=== PATIENT | male | born 1965 | race Caucasian/White ===

== ENCOUNTER 2024-07-31 13:34 | Emergency (ER) | payer OTHER, SELFPAY ==
--- NOTE | ~2024-07-31 | CT_ITS ---
CLINICAL HISTORY: hit head. syncope CT cervical spine without contrast Comparison: None Findings: Normal vertebral body alignment. Multiple level degenerative disc, facet, and uncovertebral joint change.. No acute fractures or dislocations. No acute findings on limited view of the intracranial contents. Soft tissues of the neck are normal. No consolidation or effusion at the lung apices. IMPRESSION: No acute findings. This document has been electronically signed by: Cain Ruby MD on 07/31/2024 19:34:27
--- NOTE | ~2024-07-31 | XR_ITS ---
CLINICAL HISTORY: b l lower back pain s p lifting heavy object 3 views lumbar spine Comparison: None Findings: Normal vertebral body alignment. No acute fractures or dislocation. There is multiple level degenerative disc change. IMPRESSION: No acute findings. This document has been electronically signed by: Cain Ruby MD on 07/31/2024 18:52:13
--- NOTE | ~2024-07-31 | CT_ITS ---
CLINICAL HISTORY: hit head. syncope CT head without contrast Comparison: None Findings: No intra-axial mass, midline shift, hydrocephalus, or acute hemorrhage. Right cerebellar encephalomalacia. No significant atrophy-like change or white matter disease. The visualized paranasal sinuses and mastoid air cells are normal. The orbits are unremarkable. There is no acute fracture. IMPRESSION: 1. No acute intracranial findings This document has been electronically signed by: Cain Ruby MD on 07/31/2024 19:35:31
--- NOTE | 2024-07-31 13:43 | ECG_ITS ---
Test Reason : FALL Blood Pressure : / mmHG Vent. Rate : 069 BPM Atrial Rate : 069 BPM P-R Int : 152 ms QRS Dur : 082 ms QT Int : 378 ms P-R-T Axes : 000 -22 021 degrees QTc Int : 405 ms Poor data quality Sinus rhythm Inferior infarct , age undetermined Anteroseptal infarct , age undetermined Abnormal ECG No previous ECGs available Referred By: Generic ED Physician Electronically Signed By:DANIEL RODAS MD
[2024-07-31 13:44] VITALS: BP 127/85; PULSE 55; O2SAT 95
[2024-07-31 13:48] VITALS: BP 140/81; PULSE 59; RESP 16; TEMP 36.6; O2SAT 97; BMI 33.2
[2024-07-31 14:09] LABS: MANUAL DIFF FLAG NO
[2024-07-31 14:13] LABS: Basophils Percent Auto 0.5 % (0-2); Eosinophils Percent Auto 0.3 % (0-4); Hematocrit 42.5 % (42.0-52.0); Hemoglobin 14.4 g/dl (14.0-18.0); Imm Gran Abs Auto 0.03 X10*3/uL (0.00-0.03); Imm Gran Pct Auto 0.8 % (0.0-0.4); Lymphocytes Absolute Auto 0.5 X10*3/uL (1.2-4.9); Lymphocytes Percent Auto 12.5 % (20-40); Mean Corpuscular HGB Conc 33.9 g/dl (31.0-36.0); Mean Corpuscular Hemoglobin 31.4 pg (27.0-33.0); Mean Corpuscular Volume 92.6 fL (80.0-98.0); Mean Platelet Volume 9.9 fL (9.4-12.4); Monocytes Absolute Auto 0.6 X10*3/uL (0.1-1.2); Monocytes Percent Auto 14.3 % (2-11); Neutrophils Absolute Auto 2.8 x10*3/uL (2.0-8.3); Neutrophils Percent Auto 71.6 % (45-73); Platelet Count 145 X10*3/uL (160-400); Red Blood Count 4.59 X10*6/uL (4.60-5.80); White Blood Count 3.8 X10*3/uL (4.8-10.8)
[2024-07-31 14:17] LABS: INTERNATIONAL NORM RATIO 1.2 (0.9-1.1); Prothrombin Time 14.3 SEC (10.9-12.4)
[2024-07-31 14:24] LABS: Alanine Aminotransferase 15 U/L (0-40); Albumin Level 3.7 g/dL (3.5-5.0); Alkaline Phosphatase 74 U/L (39-117); Anion Gap 14 (12-20); Aspartate Amino Transferase 26 U/L (5-37); Bilirubin Total 1.5 mg/dL (0.0-1.0); Blood Urea Nitrogen 15 mg/dL (9-16); Calcium 8.2 mg/dL (8.4-10.2); Carbon Dioxide 22 mmol/L (22-29); Chloride 103 mmol/L (96-108); Creatinine Clr Calc Pharmacy 66.5; Estimated Glomerular Filt Rate 52; Glucose Random 98 mg/dL (60-115); Magnesium 1.8 mg/dL (1.6-2.6); Potassium 3.6 mmol/L (3.3-5.1); Sodium 135 mmol/L (135-145); Total Protein 7.3 g/dL (6.5-8.0)
[2024-07-31 14:30] LABS: Troponin-I High Sensitivity 13.6 ng/L (<3.5-35.0)
[2024-07-31 16:07] VITALS: BP 150/83; PULSE 65; RESP 16; TEMP 37.4; O2SAT 98
--- NOTE | 2024-07-31 16:25 | PC.NURSE ---
Patient unhappy no provider has seen him yet, wants to go home. Is uncomfortable in his C-collar. Informed patient that provider should be over to speak with him shortly, nursing is unable to take off C-collar. material yard clerkCHUCK junior aware of patient's dissatisfaction, able to get triage provider to order CT scan of head.
[2024-07-31 17:30] VITALS: BP 142/75; PULSE 63; RESP 16; TEMP 36.8; O2SAT 97
--- NOTE | 2024-07-31 17:41 | ED_ITS ---
HPI - Fall General Chief Complaint: Fall Stated Complaint: SYNCOPE WITH HEADSTRIKE +LOC X 30 SEC Time Seen by Provider: 07/31/24 17:17 Source: patient, family () and EMS Mode of arrival: EMS Limitations: no limitations History of Present Illness ED Provider: MARIA ESTHER BOSTON PA-C HPI Narrative: 59-year-old male with pmhx significant for CVA (not on anticoagulation) presents to the ED today via EMS from work for evaluation of syncopal episode prior to arrival in ED. Patient works at an [employer] shop. He reports bending down to roll picker a heavy battery and blew my back out . Reports immediate onset of pain to his entire low back. He was able to ambulate to the front of the store where his desk was. He recalls sitting down at his desk when he suddenly felt sweaty and weak. The next thing he recalls is waking up on the floor. His co-workers report patient lost consciousness for approximately 30 seconds with head strike on the ground. No noted convulsing, confusion, or bowel/bladder incontinence. Denies hx seizures. He is not on anti-coagulation. EMS was called and patient was transported to the ED in a cervical collar. His only complaint at present is his lower back pain. Pain runs diffusely across his low back. Does not radiate. Reports his back feels stiff . Admits to chronic low back pain since he was a child. No history of spinal surgery. No history of IV drug use. Denies saddle anesthesia, bowel or bladder incontinence or retention, dysuria, hematuria, numbness/tingling/weakness of the lower extremities. He denies headache, dizziness, vision changes, neck pain, chest pain, palpitations, SOB, calf pain. No recent travel or long car rides. Related Data Previous Rx's ?Medication ?Instructions ?Recorded cyclobenzaprine 10 mg tablet 10 mg PO BID PRN muscle spasm #7 07/31/24 tabs lidocaine 5 % topical patch 1 patch topical DAILY #15 ea 07/31/24 (Lidoderm) Allergies Allergy/AdvReac Type Severity Reaction Status Date / Time No Known Allergies Allergy Verified 07/31/24 13:59 Review of Systems 2 Review of Systems: Constitutional: No fever, chills, fatigue, night sweats, weight changes ENT/Mouth: No ear pain, hearing loss, nasal congestion, sinus pain, rhinorrhea, sore throat Eyes: No eye pain, swelling, redness, vision changes, discharge Cardio: No chest pain, palpitations, COLLINS, orthopnea, peripheral edema Pulm: No SOB, cough, sputum, wheezing, dyspnea, hemoptysis GI: No nausea, vomiting, hematemesis, abdominal pain, diarrhea, constipation, hematochezia, melena : No irregular bleeding, dysuria, frequency, urgency, hesitancy, hematuria, flank pain, urinary flow changes, urinary incontinence or retention MSK: No neck pain, joint pain, myalgias, +back pain Skin: No lesions, rashes Neuro: No weakness, numbness, paresthesias, LOC, dizziness, headache Psych: No anxiety/panic, depression, SI/HI, AH/VH All other systems reviewed and are negative. [facility] Past Medical History Attestation statement: The following information was validated with the patient. Source: old records reviewed and nursing notes reviewed Physical Exam 2 Vital Signs: Vital Signs: Last Vital Signs Temp 97.2 F 07/31/24 20:20 Pulse 57 07/31/24 20:20 Resp 16 07/31/24 20:20 BP 157/97 H 07/31/24 20:20 Pulse Ox 95 07/31/24 20:20 O2 Del Method Room Air 07/31/24 20:20 BMI result Body Mass Index 33.2 hypertensive, vitals are otherwise wnl General: Well appearing, in no acute distress. Skin: Warm, dry, intact. No rashes or lesions. Head: Normocephalic, atraumatic. no palpable hematoma or skull fracture. no battles sign. no racoon eyes. EENT: Hearing is intact b/l. Conjunctiva clear. PERRLA. EOM intact. Moist mucous membranes.?no tongue laceration. Neck: Supple without LAD Cardiac: Chest wall symmetric. RRR Lungs: Normal respiratory effort without accessory muscle use. CTA bilaterally Abdomen: Soft, non-tender, non-distended. No rebound tenderness or guarding. Positive BS x4. Back: +ttp along lumbar paraspinal muscles b/l. no midline tenderness or step off. Ext: Upper and lower extremities atraumatic, without tenderness, deformity, swelling or erythema. Full ROM throughout Neuro: AOx3. Normal speech. Strength 5/5 intact throughout. No saddle anesthesia. Sensation intact to light touch. NV intact distally. Normal finger to nose, heel to hernandez. Ambulating with steady gait. Psych: Appropriate mood and affect. Responds appropriately to questions. Course Course Course Narrative: CBC without leukocytosis or left shift. No anemia. H&H stable. Chemistry without acute electrolyte abnormality requiring intervention. No LARRY. Initial troponin elevated at 13.6. Will repeat for delta to rule out NSTEMI. His EKG is nonischemic. Shows sinus rhythm with occasional PVCs with a rate of 69 beats per minute. Urine is negative for infection. Urine toxicology negative. Awaiting x- ray lumbar spine, CT head, CT cervical spine. Tylenol, Flexeril and lidocaine patch administered for back pain 2019 -- Patient reports improvement in pain after receiving above medications. delta troponin obtained >3 hours after initial is 15.9. no concern for ACS. The CT head/ c spine are unremarkable. XR lumbar spine unremarkable. he is acting baseline per his who is at bedside. he has been ambulating w/ steady gait to the bathroom. he would like to go home. i feel this is reasonable. will send flexeril/lido patches to pharmacy for treatment of back pain. Medications Administered Discontinued Medications Generic Name Dose Route Start Last Admin Trade Name Freq PRN Reason Stop Dose Admin Acetaminophen 975 mg 07/31/24 17:24 07/31/24 17:48 Acetaminophen 325 Mg Tablet PO 07/31/24 17:25 975 mg ONCE ONE Administration Cyclobenzaprine HCl 10 mg 07/31/24 17:24 07/31/24 17:48 Cyclobenzaprine Hcl 10 Mg Tablet PO 07/31/24 17:25 10 mg ONCE ONE Administration Lidocaine 1 patch 07/31/24 17:24 07/31/24 17:49 Lidocaine 4 % Patch Adh..Patch TRANSDERMA 07/31/24 17:25 1 patch ONCE ONE Administration Protocol Medical Decision Making Medical Decision Making MDM Narrative: 59-year-old male with pmhx significant for CVA (not on anticoagulation) presents to the ED today via EMS from work for evaluation of syncopal episode prior to arrival in ED. Patient works at an [employer] shop. He reports bending down to roll picker a heavy battery and blew my back out . patient was hypertensive to 140/81, vitals are otherwise WNL. He is nontoxic-appearing and in no acute distress. Arrives in a cervical collar. He states that he has not had any pain since he has fallen. I did remove cervical collar. There is no midline cervical spinous tenderness or step-off deformity. He was full ROM intact to C-spine. There is no palpable hematoma or skull fracture. No yen sign. No raccoon eyes. PERRLA. no tongue laceration. there is bilateral lumbar paraspinal muscle tenderness without midline tenderness or step off deformity. CMS intact. Differential diagnosis includes anemia, electrolyte abnormality, dehydration, ACS, arrhythmia, lumbar sprain/strain, seizure, vasovagal syncope, orthostatic hypotension, hypoglycemia, ICH, CVA/TIA, cerebellar stroke Plan for imaging, labs, ekg, pain control, and re-evaluation. Differential Diagnosis Differential Diagnoses: The differential diagnosis associated with the presentation includes as above. Admission/Observation Consideration of admission/observation: Escalation of care including admission/observation considered Admission considered on presentation Lab Data MDM Lab Attestation statement: I reviewed the patient's lab results. as above. 07/31/24 14:05 07/31/24 14:05 Labs: Lab Results 07/31/24 07/31/24 07/31/24 Range/Units 14:05 17:53 18:09 WBC 3.8 L (4.8-10.8) X10*3/uL RBC 4.59 L (4.60-5.80) X10*6/uL Hgb 14.4 (14.0-18.0) g/dl Hct 42.5 (42.0-52.0) % MCV 92.6 (80.0-98.0) fL MCH 31.4 (27.0-33.0) pg MCHC 33.9 (31.0-36.0) g/dl RDW 14.0 (11.0-16.0) % Plt Count 145 L (160-400) X10*3/uL MPV 9.9 (9.4-12.4) fL Immature Gran % (Auto) 0.8 H (0.0-0.4) % Neut % (Auto) 71.6 (45-73) % Lymph % (Auto) 12.5 L (20-40) % [place] % (Auto) 14.3 H (2-11) % Eos % (Auto) 0.3 (0-4) % Baso % (Auto) 0.5 (0-2) % Lymph # (Auto) 0.5 L (1.2-4.9) X10*3/uL [place] # (Auto) 0.6 (0.1-1.2) X10*3/uL Eos # (Auto) 0.0 (0.0-0.4) X10*3/uL Baso # (Auto) 0.0 (0.0-0.2) X10*3/uL Abs Immat Gran (auto) 0.03 (0.00-0.03) X10*3/uL Absolute Neuts (auto) 2.8 (2.0-8.3) x10*3/uL Absolute Nucleated RBC 0.000 (0.0-0.012) X10*3/uL Nucleated RBC % (auto) 0.0 (0.0-0.2) /100WBC PT 14.3 H (10.9-12.4) SEC INR 1.2 H (0.9-1.1) Sodium 135 (135-145) mmol/L Potassium 3.6 (3.3-5.1) mmol/L Chloride 103 (96-108) mmol/L Carbon Dioxide 22 (22-29) mmol/L Anion Gap 14 (12-20) BUN 15 (9-16) mg/dL Creatinine 1.39 (0.5-1.4) mg/dL Estim Creat Clear Calc 66.5 Estimated GFR 52 Random Glucose 98 (60-115) mg/dL Calcium 8.2 L (8.4-10.2) mg/dL Magnesium 1.8 (1.6-2.6) mg/dL Total Bilirubin 1.5 H (0.0-1.0) mg/dL AST 26 (5-37) U/L ALT 15 (0-40) U/L Alkaline Phosphatase 74 (39-117) U/L Troponin I High Sens 13.6 15.9 (<3.5-35.0) ng/L Total Protein 7.3 (6.5-8.0) g/dL Albumin 3.7 (3.5-5.0) g/dL Urine Color Yellow Urine Appearance Clear Urine pH 5.5 (5.0-9.0) Ur Specific [place] 1.020 (1.005-1.025) Urine Protein 100 (2+) H (Neg-Trace) mg/dL Urine Glucose (UA) Negative (Negative) mg/dL Urine Ketones Trace (Negative) mg/dL Urine Blood Large (3+) H (Negative) Urine Nitrite Negative (Negative) Ur Leukocyte Esterase Negative (Negative) Urine RBC >20 H (0-2) /HPF Urine WBC 0-5 (0-5) /HPF Ur Squamous Epith Cells 0-2 (0-2) /HPF Urine Bacteria None Seen (None Seen) Hyaline Casts 11-20 (0-2) /LPF Urine Opiates Screen Not Detected (Not Detect) Ur Buprenorphine Scrn Not Detected (Not Detect) ng/mL Ur Oxycodone Screen Not Detected (Not Detect) ng/mL Urine Methadone Screen Not Detected (Not Detect) ng/mL Urine Fentanyl Screen Not Detected (Not Detect) Ur Barbiturates Screen Not Detected (Not Detect) Ur Phencyclidine Scrn Not Detected (Not Detect) Ur Amphetamines Screen Not Detected (Not Detect) U Benzodiazepines Scrn Not Detected (Not Detect) Urine Cocaine Screen Not Detected (Not Detect) U Marijuana (THC) Screen Not Detected (Not Detect) Independent Interpretation I performed an independent interpretation of an: EKG, Plain X-Ray and CT Scan Interpretation: EKG showing sinus rhythm with a rate of 69 beats per minute, occasional PVCs, QT 378, QTC 405, no acute ischemic changes or ST elevations. X-ray lumbar spine without fracture CT head/brain without bleed or skull fracture CT cervical spine without fracture Radiology Impression Discussion of test interpretation with radiology: I have reviewed the radiologist's reading. Radiologist Impression: Ordering Physician: Rylan Britton Date of Service: 07/31/24 Procedure(s): CT head/brain wo IV con Accession Number(s): [id number] cc: Rylan Britton; Kimberly Gregg~ Report Number: [id number]: Total DLP = 696.00 mGy-cm CLINICAL HISTORY: hit head. syncope CT head without contrast Comparison: None Findings: No intra-axial mass, midline shift, hydrocephalus, or acute hemorrhage. Right cerebellar encephalomalacia. No significant atrophy-like change or white matter disease. The visualized paranasal sinuses and mastoid air cells are normal. The orbits are unremarkable. There is no acute fracture. IMPRESSION: 1. No acute intracranial findings This document has been electronically signed by: Cain Ruby MD on 07/31/2024 19:35:31 Ordering Physician: Rylan Britton Date of Service: 07/31/24 Procedure(s): CT cervical spine wo IV con Accession Number(s): [id number] cc: Rylan Britton; Kimberly Gregg~ Report Number: [id number]: Total DLP = 620.00 mGy-cm CLINICAL HISTORY: hit head. syncope CT cervical spine without contrast Comparison: None Findings: Normal vertebral body alignment. Multiple level degenerative disc, facet, and uncovertebral joint change.. No acute fractures or dislocations. No acute findings on limited view of the intracranial contents. Soft tissues of the neck are normal. No consolidation or effusion at the lung apices. IMPRESSION: No acute findings. This document has been electronically signed by: Cain Ruby MD on 07/31/2024 19:34:27 Ordering Physician: Maria Esther Boston Date of Service: 07/31/24 Procedure(s): XR lumbar spine 2-3V Accession Number(s): [id number] cc: Maria Esther Boston; Kimberly Gregg~ CLINICAL HISTORY: b l lower back pain s p lifting heavy object 3 views lumbar spine Comparison: None Findings: Normal vertebral body alignment. No acute fractures or dislocation. There is multiple level degenerative disc change. IMPRESSION: No acute findings. This document has been electronically signed by: Cain Ruby MD on 07/31/2024 18:52:13 Independent Historian Clinical information obtained from an independent historian. History obtained from or confirmed by: Spouse () and EMS Prescription Management I considered prescription management with: Pain Medication Chronic Conditions Patient?s care impacted by: Other (CVA) Social Determinants Patient?s care significantly limited by Social Determinants of Health including: Other Social Determinant of Health Critical Care Time Critical Care Time Critical Care Time: No Discharge Plan Discharge Clinical Impression: Syncope, Lumbar spine strain Patient Disposition: Home, Self-Care Instructions: Syncope (ED) Additional Instructions: Your blood work today is reassuring. Your heart enzyme is normal. Your urine is negative for infection. The CT scan of your head/ neck is normal. The xray of your lower back is normal. You were treated with a muscle relaxer, Tylenol and lidocaine patch in the ED today. These have been sent to your pharmacy for you to take over the next few days for your back pain. Flexeril is a muscle relaxer. Take this at night as it makes you drowsy. Do not drive, drink alcohol, or operate machinery while taking it. Avoid bending, lifting, or twisting. Use ice several times per day for 20 minutes at a time for the next 48 hours and then change to heat. We recommend you take 600mg ibuprofen every 6 hours or tylenol 650mg every 6 hours as needed for pain. If needed, you can alternate these medications so that you take one medication every 3 hours. For example, at noon take ibuprofen, then at 3pm take tylenol, then at 6pm take ibuprofen. Return to the Emergency Department if you experience worsening back pain, difficulty walking, fevers, numbness, tingling, incontinence, or any other concerning symptoms. In the case of an emergency call 911. Prescriptions: New lidocaine [Lidoderm] 5 % adhesive patch,medicated 1 patch topical DAILY Qty: 15 0RF Rx Instructions: leave on most painful area for up to 12 hrs cyclobenzaprine 10 mg tablet 10 mg PO BID PRN (Reason: muscle spasm) Qty: 7 0RF Referrals: Kimberly Gregg FNP [Primary Care Provider] - Stand Alone Forms: Work/School Release Interventions: ED Discharge Assessment Last Done: 07/31/24 20:20 Discharge Date/Time: 07/31/24 20:20 Print Language: Ghanaian
[2024-07-31] MEDS: Cyclobenzaprine HCl 10 MG TABLET PO (17:48)
[2024-07-31] MEDS: Acetaminophen 325 MG TABLET 975 MG PO (17:48)
[2024-07-31] MEDS: Lidocaine 4 % Patch ADH..PATCH 1 PATCH TRANSDERMA (17:49)
[2024-07-31 18:02] LABS: Appearance Urine Clear; Color Urine Yellow; Glucose Urine UA Negative (Negative); Leukocyte Esterase Urine Negative (Negative); Nitrite Urine Negative (Negative); PH 5.5 (5.0-9.0); UMIC TRIGGER UACC YES; Urine Blood Large (3+) (Negative); Urine Ketones Trace mg/dL (Negative); Urine Protein 100 (2+) mg/dL (Neg-Trace)
[2024-07-31 18:12] LABS: Amphetamine Screen Urine Not Detected (Not Detect); Barbiturates, Urine Not Detected (Not Detect); Benzodiazepines Screen Urine Not Detected (Not Detect); Buprenorphine Scr Not Detected (Not Detect); Cannabinoid Screen Urine Not Detected (Not Detect); Cocaine Screen Urine Not Detected (Not Detect); Fentanyl, urine Not Detected (Not Detect); Methadone Screen, Urine Not Detected (Not Detect); Opiate Screen Urine Not Detected (Not Detect); Oxycodone Screen Urine Not Detected (Not Detect); Phencyclidine Screen Urine Not Detected (Not Detect)
[2024-07-31 18:22] LABS: Bacteria Urine None Seen (None Seen); RBC Urine >20 /HPF (0-2); Squamous Epithelial Cell Urine 0-2 /HPF (0-2); WBC Urine 0-5 /HPF (0-5)
[2024-07-31 18:34] LABS: Troponin-I High Sensitivity 15.9 ng/L (<3.5-35.0)
[2024-07-31 20:03] VITALS: BP 157/97; PULSE 57; RESP 16; TEMP 36.2; O2SAT 95
[2024-07-31 20:20] VITALS: BP 157/97; PULSE 57; RESP 16; TEMP 36.2; O2SAT 95
== END 2024-07-31 20:20 | disposition home or self-care (01) ==
PROVIDERS: Physician Assistant Medical; Emergency Provider Emergency Medicine; PCP Nurse Practitioner Family
DX: S33.5XXA Sprain of ligaments of lumbar spine, initial encounter (principal); S09.90XA Unspecified injury of head, initial encounter; R55 Syncope and collapse; M54.2 Cervicalgia; R51.9 Headache, unspecified; R94.31 Abnormal electrocardiogram [ECG] [EKG]; W19.XXXA Unspecified fall, initial encounter; Y93.89 Activity, other specified; Y92.89 Other specified places as the place of occurrence of the external cause; Y99.0 Civilian activity done for income or pay; Z79.899 Other long term (current) drug therapy; Z51.81 Encounter for therapeutic drug level monitoring
CPT/HCPCS: 36415; 70450; 72100; 72125; 80053; 80307; 81001; 83735; 84484; 85025; 85610; 93005; 99284; 99285

== ENCOUNTER → 2024-07-31 13:43 | Outpatient (BNV) | payer OTHER, SELFPAY | PROVIDERS: PCP Nurse Practitioner Family; Visit Provider Internal Medicine Cardiovascular Disease | DX: R94.31 Abnormal electrocardiogram [ECG] [EKG] (principal) | CPT/HCPCS: 93010 ==

== ENCOUNTER → 2024-07-31 17:42 | Outpatient (BNV) | payer OTHER, SELFPAY | PROVIDERS: Emergency Provider Emergency Medicine; PCP Nurse Practitioner Family; Visit Provider Specialist | DX: R55 Syncope and collapse (principal); S09.90XA Unspecified injury of head, initial encounter; M54.9 Dorsalgia, unspecified | CPT/HCPCS: 70450; 72100; 72125 ==